=== PATIENT | female | born 1970 | race Caucasian/White ===

== ENCOUNTER 2021-05-04 14:32 | Emergency (ER) | payer BC, OTHER ==
[2021-05-04 15:44] VITALS: BP 137/79; PULSE 102; RESP 18; TEMP 98.2
[2021-05-04] MEDS ORDERED: SODIUM CHLORIDE 0.9% 1,000 ML IV STA (16:36)
[2021-05-04] MEDS ORDERED: ACETAMINOPHEN TAB 325 MG TAB PO STA (16:36)
--- NOTE | 2021-05-04 16:40 | ED ---
General Adult HPI - General Source: patient, RN notes reviewed Mode of arrival: ambulatory Limitations: no limitations - History of Present Illness -: days(s) (2) Location: head, back, left, right, lower extremity Radiation: non-radiation Severity scale (1-10): 5 Quality: aching Consistency: constant Improves with: none Worsens with: none Associated Symptoms: cough, fever/chills, headaches, loss of appetite, other (body aches) Treatments Prior to Arrival: none <Harpreet Gonsales - Last Filed: 05/04/21 23:40> <Danyell Luna - Last Filed: 05/10/21 14:37> - General Chief complaint: Upper Respiratory Infection Stated complaint: Covid Positive, Asthma Time Seen by Provider: 05/04/21 16:30 - History of Present Illness Initial comments: This is a well-appearing 51-year-old female, alert and oriented 4 presents to the emergency room with complaints of body aches, cough that started on Tuesday. She went to her primary care doctor today and tested her for Covid and she is positive. She was recommended to come to the ER for monoclonal antibodies. She has had a history of asthma. She denies any chest pain, nausea, vomiting or diarrhea. (Harpreet Gonsales) - Related Data Allergies Allergy/AdvReac Type Severity Reaction Status Date / Time hydroxyzine [From Atarax] Allergy Unknown Verified 05/04/21 15:45 Review of Systems ROS Other: All systems not noted in ROS Statement are negative. <Harpreet Gonsales - Last Filed: 05/04/21 23:40> ROS Other: All systems not noted in ROS Statement are negative. <Danyell Luna - Last Filed: 05/10/21 14:37> ROS Statement: Those systems with pertinent positive or pertinent negative responses have been documented in the HPI. Past Medical History Past Medical History: Asthma History of Any Multi-Drug Resistant Organisms: None Reported Additional Past Surgical History / Comment(s): uterine ablasion Past Psychological History: Anxiety Smoking Status: Former smoker Past Alcohol Use History: Occasional Past Drug Use History: None Reported <Harpreet Gonsales - Last Filed: 05/04/21 23:40> General Exam Limitations: no limitations General appearance: alert, in no apparent distress Head exam: Present: atraumatic, normocephalic, normal inspection Eye exam: Present: normal appearance, EOMI. Absent: scleral icterus, conjunctival injection, periorbital swelling ENT exam: Present: normal exam, normal oropharynx, mucous membranes moist Neck exam: Present: normal inspection, tenderness, full ROM. Absent: meningismus, lymphadenopathy Respiratory exam: Present: normal lung sounds bilaterally. Absent: respiratory distress, wheezes, rales, rhonchi, stridor, chest wall tenderness, accessory muscle use, decreased breath sounds Cardiovascular Exam: Present: normal rhythm, tachycardia, normal heart sounds. Absent: systolic murmur, diastolic murmur, rubs, gallop, clicks GI/Abdominal exam: Present: soft, normal bowel sounds. Absent: distended, tenderness, guarding, rebound, rigid Extremities exam: Present: full ROM. Absent: pedal edema, joint swelling, calf tenderness Back exam: Present: normal inspection, full ROM. Absent: tenderness, CVA tenderness (R), CVA tenderness (L), rash noted Neurological exam: Present: alert, oriented X3, normal gait Psychiatric exam: Present: normal affect, normal mood Skin exam: Present: warm, dry, intact, normal color. Absent: rash, cyanosis, diaphoretic, petechiae, pallor <Harpreet Gonsales - Last Filed: 05/04/21 23:40> Course Vital Signs 05/04/21 15:40 Temperature 98.2 F Pulse Rate 102 H Respiratory 18 Rate Blood Pressure 137/79 O2 Sat by Pulse 98 Oximetry Medical Decision Making <Harpreet Gonsales - Last Filed: 05/04/21 23:40> <Danyell Luna - Last Filed: 05/10/21 14:37> - Medical Decision Making Patient received monoclonal antibody infusion for positive Covid test. She tolerated the infusion well with no complications. She is afebrile in the emergency room and oxygen saturation is 98% she has no respiratory distress. She'll be discharged to follow up with her primary care doctor. She was also directed to return to the emergency room with any new or worsening symptoms including shortness of breath. (Harpreet Gonsales) I was available for consultation in the emergency department. The history and physical exam were done by the midlevel provider. I was consulted for this patients care. I reviewed the case with the midlevel provider and based on their presentation of the patient, I agree with the assessment, medical decision making and plan of care as documented. Chart was dictated using [employer] dictation software. Attempts were made to correct any dictation errors however some typographical errors may persist. (Danyell Luna) Disposition Is patient prescribed a controlled substance at d/c from ED?: No Time of Disposition: 20:06 <Harpreet Gonsales - Last Filed: 05/04/21 23:40> <Danyell Luna - Last Filed: 05/10/21 14:37> Clinical Impression: COVID-19 Disposition: HOME SELF-CARE Condition: Good Instructions (If sedation given, give patient instructions): Coronavirus Disease 2019 (COVID-19) Additional Instructions: You can take Tylenol and/or Motrin as needed for any body aches or fevers. You should also take vitamin D, vitamin C and zinc. Return to the emergency room with any new or worsening symptoms. Follow-up with the primary care doctor in 1 week. Referrals: Zeynep Du DO [Primary Care Provider] - 1-2 days
[2021-05-04] MEDS ORDERED: CASIRIVIMAB (REGN10933) (EUA) 600 MG, IMDEVIMAB (REGN10987) (EUA) 600 MG in SODIUM CHLO... IVPB ONE (18:00)
[2021-05-04] MEDS ORDERED: SODIUM CHLORIDE 0.9% 50 ML IVPB ONE (18:00)
[2021-05-04] MEDS ORDERED: IBUPROFEN 600 MG TAB PO STA (20:15)
== END 2021-05-04 20:35 | disposition home or self-care (01) ==
LOC: EC 14:32
DX: U07.1 COVID-19 (principal); J45.909 Unspecified asthma, uncomplicated; R05.9 Cough, unspecified; F41.9 Anxiety disorder, unspecified; Z87.891 Personal history of nicotine dependence
CPT/HCPCS: 96365; 99283 ×2; M0243; Q0243

== ENCOUNTER → 2022-10-01 | Outpatient (CLI) | payer BC ==
--- NOTE | 2022-10-01 14:19 | CT ---
EXAMINATION TYPE: CT abdomen pelvis wo con DATE OF EXAM: 10/01/2022 HISTORY: Right upper quadrant pain, Hematuria, unspecified. CT DLP: 612 mGycm. Automated Exposure Control for Dose Reduction was Utilized. TECHNIQUE: CT scan of the abdomen and pelvis is performed without oral or IV contrast. COMPARISON: NONE FINDINGS: Within the limitations of a non-contrast study, the following observations are made. LUNG BASES: There is 6 x 3 mm right lower lobe nodule axial image 6. There is mild central bibasilar linear scarring and/or atelectasis. LIVER/GB: Contracted gallbladder. With no biliary dilatation. PANCREAS: No significant abnormality is seen. SPLEEN: No significant abnormality is seen. ADRENALS: No significant abnormality is seen. KIDNEYS: No renal calculi or hydronephrosis is seen bilaterally on current study. BOWEL: Normal-appearing appendix from base of cecum. Slightly suboptimal evaluation without enteric c ontrast. No suspicious small or large bowel dilatation. GENITAL ORGANS: Anteverted uterus. LYMPH NODES: No greater than 1cm abdominal or pelvic lymph nodes are appreciated. OSSEOUS STRUCTURES: No significant abnormality is seen. OTHER: No significant additional abnormality is seen. IMPRESSION: No renal stones or hydronephrosis is seen bilaterally. No acute findings identified on is study.
== END | disposition home or self-care (01) ==
LOC: RADCTMAIN 13:42
PROVIDERS: ATTEND Family Medicine
DX: R10.11 Right upper quadrant pain (principal); R31.0 Gross hematuria
CPT/HCPCS: 74176